=== PATIENT | male | born 1980 | race Caucasian/White ===

== ENCOUNTER → 2018-05-14 | Outpatient (CLI) | payer BC ==
--- NOTE | 2018-05-14 16:40 | CONS ---
CONSULTATION DATE OF SERVICE: 05/14/2018 38-year-old gentleman who has been evaluated in the sleep center for possible obstructive sleep apnea-hypopnea syndrome. HISTORY OF PRESENT ILLNESS/SLEEP-WAKE EVALUATION: SLEEP SCHEDULE: Patient's usual sleep schedule on working days from 9:30 p.m. to 5:30 a.m. and on weekends from midnight until 7:00 am. FALLING ASLEEP: He sometimes has problem with falling asleep, although no TV in bedroom. DURING SLEEP: During the sleep, he sleeps history with his from the stomach position. Prefers not to sleep on the back. He has loud snoring, witnessed episodes of stopped breathing during the sleep. The patient wakes up from sleep 3 times with 2 episodes of nocturia episodes of gasping for air, panic attacks, 2 awakenings with dry mouth. DURING THE DAY/SLEEP WAKE EVALUATION: In the morning patient wakes up tired, has problem to pay attention, falling asleep during the day and worrying about his sleep, has problem with memory, anxiety and sexual dysfunction. [place] Sleepiness Scale significantly increased to 13. PAST MEDICAL HISTORY: Positive for hypertension. MEDICATIONS: Hydrochlorothiazide. PAST SURGICAL HISTORY: None. SOCIAL HISTORY: Negative for smoking or using alcohol. FAMILY HISTORY: Positive for hypertension, heart problems, hyperlipidemia, sleep apnea, snoring, pneumoniae, cancer, diabetes, acid reflux. REVIEW OF SYSTEMS: Awakenings from sleep, sleepiness during the day. PHYSICAL EXAM: gentleman without distress BP 161/100, HR 104, RR 16, height 5 feet 11 inches, weight 368.0, body mass index 51.3, temperature 98.4, oxygen saturation at room air 98%. Oropharynx Mallampati 3, low position of soft palate. Nose asymmetric. Some restrictions on nasal breathing. Wide neck 19 inches in circumference. Neck Supple, no JVD. Thyroid is not palpable. LUNGS Clear to percussion and to auscultation. Good air exchange. No wheezing or rhonchi. HEART S1, S2 regular. No murmurs, gallops, or rubs. ABDOMEN: Obese. Soft and nontender. Bowel sounds are present. No organomegaly appreciated. EXTREMITIES No clubbing or cyanosis. BLOW MACHINE TENDER STARCH SPRAYING Awake, alert, and oriented X3. Cranial nerves 2 to 7 intact. There is no fasciculation or atrophy. noted. No focal deficits observed. IMPRESSION: 1. Snoring, witnessed episodes of stopped breathing during the sleep, low position of soft palate, wide neck, excessive daytime sleepiness, obstructive sleep apnea- hypopnea syndrome. 2. Obesity, body mass index 51.3. 3. Hypertension. 4. Possible nasal septum deviation with restriction of nasal breathing. PLAN: 1. Polysomnography for evaluation of patient's breathing during sleep. 2. CPAP/BiPAP titration if sleep study confirms obstructive sleep apnea-hypopnea syndrome. 3. Preferable position during sleep on the side. 4. No driving if patient feels any sleepiness. 5. I will see patient for follow up visit to explain results of testing and following plan. Thank you very much for referring this patient for consultation. Sincerely, Dank Hyman MD, PhD, FAASM Diplomat of [place] [employer] [place] [employer] Bone Char Kiln Tender of [facility] [place] MMODL / IJN: [id number] /
== END ==
LOC: SLEEP 14:22
PROVIDERS: ATTEND Internal Medicine
DX: G47.33 Obstructive sleep apnea (adult) (pediatric) (principal); E66.9 Obesity, unspecified; I10 Essential (primary) hypertension; Z68.43 Body mass index [BMI] 50.0-59.9, adult; Z99.89 Dependence on other enabling machines and devices; Z79.899 Other long term (current) drug therapy
CPT/HCPCS: 99211

== ENCOUNTER → 2019-03-25 | Outpatient (CLI) | payer BC ==
--- NOTE | 2019-03-25 16:31 | PN ---
PROGRESS NOTE DATE OF SERVICE: 03/25/2019 This patient is a 39-year-old gentleman who has been followed in Sleep Center for treatment of obstructive sleep apnea-hypopnea syndrome. Home sleep apnea test showed that the patient has severe sleep apnea, and I discussed the results of his sleep studies with him today in detail. After that he was started on treatment with Auto PAP. Today is his first visit after starting treatment with CPAP. He sleeps better with the machine. His quality of sleep is better and he feels better during the day. [place] Sleepiness Scale today is zero. He indicated that he has very significant improvement in his sleep. I checked his CPAP unit. Range of the pressure is 8 to 20, average pressure 8.8 cm of water. Usage is 28/30 nights for the last month and 26/30 nights for more than 4 hours for the last month with average usage 6.1 hours per night. Leak is 26 L/minute, which is borderline for a full-face mask. The patient is using an AirFit F10 full-face mask. Apnea-hypopnea index reading is only 1.7, which is absolutely perfect. MEDICATIONS: None at the present time. PHYSICAL EXAMINATION: GENERAL: A pleasant patient in no distress. VITAL SIGNS: BP 129/79, HR 58, RR 16, height 5 feet 10-1/2 inches, weight 259.0, body mass index 36.6, temperature 97.3, oxygen saturation at room air 99%. HEENT: PERRLA, EOMI. Evaluation of oropharynx showed tongue protrudes midline. Low position of soft palate. Mallampati IV. NECK: Supple. No JVD. Thyroid is not palpable. LUNGS: Clear to percussion and to auscultation. Good air exchange. No wheezing or rhonchi. HEART: S1, S2 regular. No murmurs, gallops or rubs. ABDOMEN: Slightly obese. EXTREMITIES: No clubbing or cyanosis. BASS STRING WINDER: Awake, alert, and oriented X3. Cranial nerves 2 to 7 intact. There is no fasciculation or atrophy. noted. No focal deficits observed. IMPRESSION: 1. Severe obstructive sleep apnea-hypopnea syndrome; apnea-hypopnea index 40.4 with oxygen desaturation to 65% by results of home sleep apnea test, fully controlled with CPAP. The patient demonstrated great compliance with treatment, benefitting from treatment. 2. Obesity; body mass index 36.6. 3. History of hypertension in the past. Normal blood pressure after being started on CPAP. 4. Some restriction of nasal breathing; possibly nasal septum deviation. PLAN: 1. Patient will continue to use CPAP equipment every night for the whole night. 2. Watching weight. 3. Sleep hygiene with regular time in bed for at least 7-1/2 hours. 4. No driving if feeling any sleepiness. 5. I will maintain all necessary prescriptions for CPAP supplies, including mask, heated tube and filters. Thank you very much for allowing me to participate in the management of your patient. Sincerely, Dank Hyman MD, PhD, FAASM Diplomat of [place] [employer] [employer] Power Cleaner Operator of [facility] [place] [id number] / RAN: [id number] /
--- NOTE | 2019-03-25 16:40 | PN ---
PROGRESS NOTE ADDENDUM TO DICTATION: DATE OF SERVICE: 03/25/2019 This patient has been followed up in Sleep Center for treatment of obstructive sleep apnea-hypopnea syndrome. The patient had bariatric surgery in October of 2018. After surgery he lost about 100 pounds. After losing weight, even if he sleeps without the CPAP unit, he is still able to sleep pretty well. ADDENDUM TO PLAN: 1. Repeat home sleep apnea test for reevaluation of patient's breathing at the present time after losing more than 100 pounds of weight. 2. We will review plan after reviewing the results of home sleep apnea test. Sincerely, Dank Hyman MD, PhD, FAASM Diplomat of [employer] [employer] [employer] Cycle Analyst of [facility] [place] MMODL / RAN: [id number] /
== END | disposition home or self-care (01) ==
LOC: SLEEP 13:40
PROVIDERS: ATTEND Internal Medicine
DX: G47.33 Obstructive sleep apnea (adult) (pediatric) (principal); E66.9 Obesity, unspecified; Z68.36 Body mass index [BMI] 36.0-36.9, adult; Z99.89 Dependence on other enabling machines and devices; Z86.79 Personal history of other diseases of the circulatory system